=== PATIENT | female | born 1985 | race Caucasian/White ===

== ENCOUNTER 2017-09-02 17:35 | Inpatient (IN) | payer OTHER ==
[~2017-09-02] VITALS: Ht 172.7 cm; Wt 96.2 kg
[~2017-09-02 17:35] MED LIST: IBUPROFEN800 MG PO; PRENATAL1 TA2 PO
[2017-09-02 18:47] LABS: ABSOLUTE BASOPHIL COUNT 0.1 /CUMM (0.0-0.2); ABSOLUTE EOSINOPHIL COUNT 0.1 /CUMM (0.0-0.7); ABSOLUTE GRANULOCYTE CT 7.8 /CUMM (1.4-6.5); ABSOLUTE LYMPH COUNT 1.9 /CUMM (1.2-3.4); ABSOLUTE MONOCYTE COUNT 0.6 /CUMM (0.10-0.60); BASOPHIL % 0.7 % (0.0-2.0); EOSINOPHIL % 0.6 % (0-5); HEMATOCRIT 40.8 % (37-47); MEAN CORPUSCULAR HGB 30.2 PG (27.0-31.0); MEAN CORPUSCULAR VOLUME 88.8 FL (81.0-99.0); MEAN PLATELET VOLUME 7.8 FL (7.4-10.4); PLATELET COUNT 172 /CUMM (130-400); RBC DISTRIBUTION WIDTH 13.8 % (11.5-14.5); WHITE BLOOD CELL COUNT 10.4 /CUMM (4.8-10.8)
--- NOTE | 2017-09-02 18:53 | History & Physical ---
General Information and HPI MD Statement: I have seen and personally examined RELL DOOLEY and documented this H&P. The patient is a 31 year old female at [40] weeks and [2] days gestation who presented with a chief complaint of [CTXS]. Source of Information: patient Exam Limitations: no limitations History of Present Illness: 31yo, , 40 2/7wks, c/o ctxs pain since this PM, getting stronger and closer, came to CBC for evaluation, she was found to have 4 cm dilated. care started at 8 wks, Rh negative, she received RhoGAm at 28 wks, no other issues. 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 Home Smoking Status: Current Some Day Smoker ETOH Use: occasional use Illicit Drug Use: denies illicit drug use Review of Systems Review of Systems Constitutional: Reports: no symptoms. EENTM: Reports: no symptoms. Cardiovascular: Reports: no symptoms. Respiratory: Reports: no symptoms. GI: Reports: no symptoms. Genitourinary: Reports: see HPI. Musculoskeletal: Reports: no symptoms. Skin: Reports: no symptoms. Neurological/Psychological: Reports: no symptoms. Hematologic/Endocrine: Reports: no symptoms. Immunologic/Allergic: Reports: no symptoms. All Other Systems: Reviewed and Negative Date of LMP: 11/24/16 Exam & Diagnostic Data Obstetric Exam Wgt Gained During : 50lb Pelvimetry: tested 7lb8oz Dilation (cm): 6 Effacement (%): 80 Station: 0 Membranes: intact Fluid: unknown Fundal Height (cm): 40 Multiple Gestation? No Contractions: q2-3 min Infant #1 - FHR Baseline: 130 Category: 1 Estimated Weight: 3600g Presentation: vertex Patient for Induction? No Physical Exam: VSS General: NAD Abdomen: gravid, soft, nontender ext: DCT (-) Labs Blood Type & Rh: O negative Antibody Screen: negative Hct/Hgb & Platelets #1: 13.4/41.2%,[id number] Hct/Hgb & Platelets #2: 12/38.7%,[id number] Rubella: immune VDRL #1: negative VDRL #2: negative HbsAg: negative HIV #1: negative HIV #2 negative 1 Hr P Group B Strep: negative Initial Ultrasound: IUP at 8 wks Anatomy Ultrasound: nl Ultrasound for EFW: 51% at 36wks Genetic Testing: declined Last 24 Hrs of Labs/[facility]: Laboratory Tests 09/02/17 1825: Hemoglobin A1c Pending, CBC w Diff NO MAN DIFF REQ, RBC 4.60, MCV 88.8, MCH 30.2 , MCHC 34.0, RDW 13.8, MPV 7.8, Gran % 75.0, Lymphocytes % 18.3 L, Monocytes % 5.4, Eosinophils % 0.6, Basophils % 0.7, Absolute Granulocytes 7.8 H, Absolute Lymphocytes 1.9, Absolute Monocytes 0.6, Absolute Eosinophils 0.1, Absolute Basophils 0.1, Urine Color Pending, Urine Clarity Pending, Urine pH Pending, Ur Specific [place] Pending, Urine Protein Pending, Urine Ketones Pending, Urine Nitrite Pending, Urine Bilirubin Pending, Urine Urobilinogen Pending, Ur Leukocyte Esterase Pending, Ur Microscopic SEDIMENT EXAMINED, Urine RBC Pending, Urine Hemoglobin Pending, Urine Glucose Pending Assessment/Plan Assessment/Plan: 31yo, , 40 2/7w2ks, labor 1. admit pt, admission labs 2. pain management as needed 3. monitor closely As Ranked By This Provider Problem List: 1. Core Measures Venous Thromboembolism VTE Risk Factors / No Mechanical VTE Prophylaxis d/t LowRisk-No Interven Req'd No VTE Pharm Prophylaxis d/t LowRisk-No Interven Req'd Attending MD Review Statement Attending Statement Attending MD Statement: examined this patient, discussed with family, discussed w/nursing
[2017-09-02 19:44] VITALS: BP 132/75
--- NOTE | 2017-09-02 20:27 | Labor & Delivery Summary ---
Delivery Summary Vaginal Delivery: Vaginal: vertex Episiotomy/Lacerations: Episiotomy/Lacerations: 2ND DEGREE Type: 2ND DEGREE Repair: 3-0 VICRYL Anesthesia: LOCAL Placenta: Placenta: spontanteous, normal, 3 vessel, nuchal cord (x_) (X1) Baby's Weight: 8LB4OZ Apgars - 1 Min: 9 Apgars - 5 Min: 9 Additional Comments: Patient fully dilated, pushed well, spontaneously delivered a viable male infant at cephalic presentation, SCOTT position, head delivered atraumatically, followed by shoulder and rest of the body without difficulty, nuchal cord 1 and released , baby cried and placed on mother's chest, cord clamped and cut. Placenta delivered spontaneously, intact, three-vessel cord. Second-degree laceration repaired in standard technique under local anesthesia. Patient tolerated the procedure well, laps and instruments counts were correct. Patient in recovery room in stable condition. EBL 300 mL.
[2017-09-03 08:05] LABS: ABSOLUTE BASOPHIL COUNT 0 /CUMM (0.0-0.2); ABSOLUTE EOSINOPHIL COUNT 0 /CUMM (0.0-0.7); ABSOLUTE GRANULOCYTE CT 9.2 /CUMM (1.4-6.5); ABSOLUTE LYMPH COUNT 2.1 /CUMM (1.2-3.4); ABSOLUTE MONOCYTE COUNT 0.7 /CUMM (0.10-0.60); BASOPHIL % 0.1 % (0.0-2.0); EOSINOPHIL % 0.4 % (0-5); MEAN CORPUSCULAR HGB 30.6 PG (27.0-31.0); MEAN CORPUSCULAR HGB CONC 34.2 G/DL (33.0-37.0); MEAN CORPUSCULAR VOLUME 89.3 FL (81.0-99.0); MEAN PLATELET VOLUME 8.4 FL (7.4-10.4); PLATELET COUNT 170 /CUMM (130-400); RBC DISTRIBUTION WIDTH 13.6 % (11.5-14.5); RED BLOOD CELL CT 3.98 /CUMM (4.20-5.40); WHITE BLOOD CELL COUNT 12.1 /CUMM (4.8-10.8)
[2017-09-03 08:10] LABS: HEMATOCRIT 35.5 % (37-47)
--- NOTE | 2017-09-03 09:17 | PN- Post Delivery/GYN ---
Subjective Subjective: feeling well, no complaints, toerate diet, void without difficulties. ambulating well Review of Systems Constitutional: Reports: no symptoms. EENTM: Reports: no symptoms. Cardiovascular: Reports: no symptoms. Respiratory: Reports: no symptoms. Gastrointestinal: Reports: no symptoms. Genitourinary: Reports: see HPI. Musculoskeletal: Reports: no symptoms. Skin: Reports: no symptoms. Neurological/Psychological: Reports: no symptoms. Hematologic/Endocrine: Reports: no symptoms. All Other Systems: Reviewed and Negative Objective Last 24 Hrs of Vital Signs/I&O Vital Signs Date Time Temp Pulse Resp B/P B/P Pulse O2 O2 Flow FiO2 Mean Ox Delivery Rate 09/03 1943 132/75 Intake & Output 09/03 1600 09/03 0800 09/03 0000 Intake Total Output Total Balance Patient 96.162 kg Weight Physical Exam: VSS CV RRR Lungs CTA B/L Abdomen: soft, nontender, uterus firm, fundus below umbilicus, lochia mild Ext: DCT (-) Current Medications: Current Medications Sig/Jelani Start time Last Medication Dose Route Stop Time Status Admin Acetaminophen 650 MG Q4P PRN 09/02 2029 AC PO Bupivacaine HCl 20 ML ONCE ONE 09/02 2229 DC 09/02 OTHER 09/020 Bupivacaine HCl 10 ML ONCE ONE 09/02 2029 DC SC 09/02 2030 Butorphanol Tartrate 2 MG ONCE ONE 09/02 2229 DC 09/02 IV 09/02 Docusate Sodium 100 MG BID PRN 09/02 2029 AC PO Ibuprofen 800 MG Q6P PRN 09/02 2029 AC 09/03 PO 0619 Lactated Ringer's 1,000 ML Q8H 09/02 183 DC 09/02 IV 1830 Oxycodone/ 1 TAB Q3P PRN 09/02 2029 AC Acetaminophen PO Oxytocin 20 UNITS Q5H 09/02 2029 DC 09/02 Lactated Ringer's 1,000 ML IV 09/03 0129 1940 Senna 374 MG AT BEDTIME NEED.. 09/02 2029 AC PO Last 24 Hrs of Labs/[facility]: Laboratory Tests 09/03/1720: Kleihauer Cells Pending 09/03/1720: CBC w Diff NO MAN DIFF REQ, RBC 3.98 L, MCV 89.3, MCH 30.6, MCHC 34.2, RDW 13.6 , MPV 8.4, Gran % 76.0 H, Lymphocytes % 17.5 L, Monocytes % 6.0, Eosinophils % 0.4, Basophils % 0.1, Absolute Granulocytes 9.2 H, Absolute Lymphocytes 2.1, Absolute Monocytes 0.7 H, Absolute Eosinophils 0, Absolute Basophils 0 09/02/17 1825: Hemoglobin A1c Pending, CBC w Diff NO MAN DIFF REQ, RBC 4.60, MCV 88.8, MCH 30.2 , MCHC 34.0, RDW 13.8, MPV 7.8, Gran % 75.0, Lymphocytes % 18.3 L, Monocytes % 5.4, Eosinophils % 0.6, Basophils % 0.7, Absolute Granulocytes 7.8 H, Absolute Lymphocytes 1.9, Absolute Monocytes 0.6, Absolute Eosinophils 0.1, Absolute Basophils 0.1, Urinalysis LIGHT H, Urine Color YEL, Urine Clarity HAZY H, Urine pH 6.0, Ur Specific [place] >= 1.030, Urine Protein TRACE H, Urine Ketones NEG, Urine Nitrite NEG, Urine Bilirubin NEG, Urine Urobilinogen 0.2, Ur Leukocyte Esterase TRACE H, Ur Microscopic SEDIMENT EXAMINED, Urine RBC 1-3, Urine WBC 1-3 H, Ur Epithelial Cells MANY H, Urine Crystals 3+ [place] H, Urine Bacteria MANY H, Urine Mucus MOD H, Urine Hemoglobin SMALL H, Urine Glucose NEG Assessment/Plan Assessment/Plan 31yo, s/p , PPD#1 1. encourage ambulation and 2. RT PP care Problem List: 1. Attending MD Review Statement Attending Statement Attending MD Statement: examined this patient, discussed with nursing
--- NOTE | 2017-09-04 10:17 | PN- Post Delivery/GYN ---
Subjective Subjective: feeling well Review of Systems Constitutional: Reports: no symptoms. Denies: chills, fever. EENTM: Denies: blurred vision, double vision, visual changes. Cardiovascular: Denies: chest pain, edema. Gastrointestinal: Denies: diarrhea, nausea, vomiting. Neurological/Psychological: Denies: anxiety, depressed. Objective Last 24 Hrs of Vital Signs/I&O vss Physical Exam General Appearance Alert, Oriented X3, Cooperative, No Acute Distress Cardiovascular Regular Rate Lungs Clear to Auscultation Abdomen Soft, fundus firm Rectal lochia serosanganous Current Medications: Current Medications Sig/Jelani Start time Last Medication Dose Route Stop Time Status Admin Acetaminophen 650 MG Q4P PRN 09/02 2029 AC PO Docusate Sodium 100 MG BID PRN 09/02 2029 AC PO Ibuprofen 800 MG .STK-MED ONE 09/03 2128 DC PO 09/03 2129 Ibuprofen 800 MG .STK-MED ONE 09/03 1338 DC PO 09/03 1339 Ibuprofen 800 MG Q6P PRN 09/02 2029 AC 09/03 PO 0 Oxycodone/ 1 TAB Q3P PRN 09/02 2029 AC Acetaminophen PO Senna 374 MG AT BEDTIME NEED.. 09/02 2029 AC PO Assessment/Plan Assessment/Plan ppd #2 vss afebrile Problem List: 1. Attending MD Review Statement Attending Statement Attending MD Statement: examined this patient, discussed with family, discussed with nursing
[2017-09-04] MEDS ORDERED: IBUPROFEN800 M1 PO (10:19)
== END 2017-09-04 11:41 | DRG 775 ==
LOC: CBCO 17:35 → GNO 18:10
PROVIDERS: Obstetrics & Gynecology
PROC: 10E0XZZ Delivery of Products of Conception, External Approach (ICD-10-PCS; principal; 2017-09-02)
PROC: 0KQM0ZZ Repair Perineum Muscle, Open Approach (ICD-10-PCS; principal; 2017-09-02)
DX: O70.1 Second degree perineal laceration during delivery (principal); Z37.0 Single live birth; F17.210 Nicotine dependence, cigarettes, uncomplicated; O69.81X0 Labor and delivery complicated by cord around neck, without compression, not applicable or unspecified; Z3A.40 40 weeks gestation of pregnancy; Z88.1 Allergy status to other antibiotic agents; Z88.0 Allergy status to penicillin; O99.334 Smoking (tobacco) complicating childbirth
CPT/HCPCS: GNOS; 36415; 81001; J2790; J7120